=== PATIENT | male | born 1930 | race Caucasian/White ===

== ENCOUNTER → 2017-05-02 | Outpatient (REF) ==
[~2017-05-02] MED LIST: AMOXICILLIN 25250 MG PO; ASPIRIN 32325 MG/TAB PO; ASPIRIN 81M81 MG/TA2 PO; B & O SUPP1 SUPP.REC RC; COUMADIN 2MG2 MG/TAB PO; COUMADIN 3MG3 MG/TAB PO; DIFLUCAN 100MG100 MG PO; LASIX 20MG TABL20 MG PO; LEVAQUIN 5500 MG/TA1 PO; LEVAQUIN 750MG750 M1 PO; NORCO 325 MG-51 TAB PO; Norvasc PO; PEPCID 20MG TAB20 MG PO; PERCOCET 325 MG1 TA2 PO; PERFOROMIS20 MCG/2 M IH; PROAIR HFA0.09 MG/AC IH; PULMICORT0.5 MG/2 M IH; PYRIDIUM 100MG100 MG PO; RT ALBUTER2.5 MG/0.5 IH; RT SPIRIVA18 MCG IH; SODIUM BICARB; SODIUM BICARBO650 MG PO; TUMS 500500 MG PO; TYLENOL 325MG325 MG PO; VESICARE 5MG5 MG; VISTARIL IM; VITAMIN D3400 IU PO; ZOFRAN 4MG T4 MG/TAB PO; ZOFRAN MDV2 MG/1 ML IM; [UNRECOGNIZED DRUG - OTHER]; [UNRECOGNIZED DRUG - OTHER] IV
== END ==
LOC: ZLAB.WCH 10:20
DX: Z01.89 Encounter for other specified special examinations (principal)

== ENCOUNTER → 2017-10-24 | Outpatient (REF) ==
[~2017-10-24] MED LIST changes: +MAXIPIME1 GM IV; +NORVASC 5MG5 MG/TAB PO; +ZOLOFT 25MG25 MG PO
[2017-10-24 14:27] LABS: BASO # 0.1 (0.0-0.2); BASO % 0.4 % (0.0-2.0); EOS # 0.1 (0.0-0.7); EOS % 0.4 % (0-4.0); GRAN # 17.3 (1.4-6.5); GRAN % 84.5 % (42.2-75.2); HEMATOCRIT 38.8 % (42.0-52.0); HEMOGLOBIN 12.9 g/dl (13.5-18.0); LYMPH # 1.3 (1.2-3.4); LYMPH % 6.5 % (20.0-51.0); MEAN CELL VOLUME 85 fl (80.0-100.0); MEAN CORPUSCULAR HEMOGLOBIN 28 pg (27.0-31.0); MEAN CORPUSCULAR HGB CONC 33 g/dl (33.0-37.0); MEAN PLATELET VOLUME 9.4 fl (7.4-10.4); MONO # 1.4 (0.1-0.6); PLATELET COUNT 412 K/mm3 (130-400); RED BLOOD COUNT 4.59 M/mm3 (4.20-5.60); REDCELL DISTRIBUTION WIDTH-CV 15.9 % (11.5-14.5)
[2017-10-24 14:44] LABS: BILIRUBIN,TOTAL 0.7 mg/dL (0.0-1.0); CALCIUM 8.5 mg/dL (8.4-10.2); CREATININE, serum 2.66 mg/dL (0.66-1.25); POTASSIUM 3.4 mmol/L (3.4-5.0); TOTAL PROTEIN 6.4 gm/dL (6.4-8.2)
[2017-10-24 15:24] LABS: COLLECTION METHOD CATHETER
[2017-10-24 16:00] LABS: MUCOUS Present /lpf; PH 5 (5-8); SQUAMOUS EPITHELIAL 0-2 /hpf; URINE APPEARANCE Hazy; URINE BACTERIA None Seen /hpf; URINE BILIRUBIN Negative (NEGATIVE); URINE BLOOD 1+ (NEGATIVE); URINE COLOR Yellow; URINE GLUCOSE 1+ (NEGATIVE); URINE KETONE Negative (NEGATIVE); URINE LEUKOCYTE ESTERASE Trace (NEGATIVE); URINE NITRATE Negative (NEGATIVE); URINE PROTEIN(semi-quant) 2+ (NEGATIVE); URINE UROBILINOGEN Negative (NEGATIVE)
== END ==
LOC: ZCOL.LAB 14:21
PROVIDERS: Internal Medicine
DX: N39.0 Urinary tract infection, site not specified (principal); R65.20 Severe sepsis without septic shock